=== PATIENT | female | born 1935 | race Caucasian/White ===

== ENCOUNTER 2018-04-13 19:07 | Emergency (ER) | payer MEDICARE, OTHER ==
[2018-04-13] MEDS ORDERED: Lidocaine 1% w/Epinephrine 1:100K 20 ML VIAL ONE (19:36)
[2018-04-13 20:21] LABS: #Basophils 0.1 thou/uL (0.0-0.2); #Eosinphils 0.3 thou/uL (0.0-0.7); #Lymphocytes 4.6 thou/uL (1.20-3.40); #Monocytes 1.2 thou/uL (0.11-0.59); #Neutrophils 6.7 thou/uL (1.40-6.50); %Basophils 0.7 % (0.0-1.0); %Eosinophils 2.6 % (0.0-10.0); %Lymphocytes 35.9 % (21.0-51.0); %Monocytes 9.1 % (0.0-10.0); %Neutrophils 51.8 % (42.0-75.0); Hemoglobin 12.6 g/dL (12.0-16.0); Mean Corpuscular HGB CONC 31.9 g/dL (32.0-36.0); Mean Corpuscular Hemoglobin 29.7 pg (27.0-31.0); Mean Platelet Volume 7.3 fL (7.4-10.4); Platelet Count 318 thou/uL (130-400); RBC Distribution Width 13.5 % (11.5-14.5); Red Blood Cell (RBC) Count 4.24 mill/uL (4.20-5.40); White Blood Cell (WBC) Count 12.9 thou/uL (4.8-10.8)
[2018-04-13] MEDS ORDERED: Acetaminophen 500 MG TAB ONE (20:49)
--- NOTE | 2018-04-13 21:39 | CT ---
CT BRAIN NONCONTRAST: 04/13/18 HISTORY: 82-year-old female status post acute head trauma from fall. FINDINGS: There is no midline shift or any other mass effect. There is no evidence of acute intracranial hemor rhage, large cortical infarct, obstructive hydrocephalus, or extraaxial fluid collection. The calvar ium is intact. There is diffuse parenchymal volume loss. There are low attenuation areas in the whi te matter. These are nonspecific, but in a patient of this age, they are probably chronic ischemic w eun matter changes due to microvascular atherosclerosis. There is a left posterior parietal scalp he matoma containing gas. There are skin enrike superficial to this hematoma. IMPRESSION: 1) No acute intracranial findings. 2) Involutional changes and chronic ischemic white matter changes. 3) Acute, traumatic, left parietal scalp hematoma and laceration. jn [] POS: [facility]
[2018-04-13 22:53] LABS: Bilirubin Negative (Negative); Blood, Urine Negative (Negative); Clarity CLEAR (Clear); Glucose, Urine (Dipstick) Negative (Negative); Leukocyte Moderate (Negative); Nitrite Negative (Negative); Protein, Urine (Dipstick) Negative (Neg-Trace); Specific Gravity, Urine 1.016 (1.002-1.036); Urobilinogen 0.2 mg/dL (0.2-1.0)
[2018-04-13 22:55] LABS: Bacteria/HPF None Seen HPF (None Seen); Hyaline Casts/LPF 0-3 HYALINE CAST LPF (0-3 Hyaline); Pathc Cast-AUWi Flag 0.29 (0-2.49); RBC/HPF 0-3 HPF (0-3); Squamous Epithelial 0-3 HPF (0-3)
== END 2018-04-13 23:20 | disposition home or self-care (01) ==
LOC: ERS 19:07
DX: S01.01XA Laceration without foreign body of scalp, initial encounter (principal); E11.9 Type 2 diabetes mellitus without complications; J44.9 Chronic obstructive pulmonary disease, unspecified; F32.9 Major depressive disorder, single episode, unspecified; Z79.899 Other long term (current) drug therapy; Z79.4 Long term (current) use of insulin; W19.XXXA Unspecified fall, initial encounter; Y92.000 Kitchen of unspecified non-institutional (private) residence as the place of occurrence of the external cause
CPT/HCPCS: 12001; 36415; 70450; 81003; 81015; 85025; 93005; J2001

== ENCOUNTER 2021-03-11 04:09 | Inpatient (IN) | payer OTHER, MEDICARE ==
[2021-03-11] MEDS ORDERED: Lidocaine 1% w/Epinephrine 1:100K 20 ML VIAL ONE (04:38)
[2021-03-11 07:26] LABS: Hemoglobin 9.8 g/dL (12.0-16.0); Mean Corpuscular HGB CONC 31.9 g/dL (32.0-36.0); Mean Corpuscular Hemoglobin 28.7 pg (27.0-31.0); Mean Corpuscular Volume 89.8 fL (78.0-98.0); Mean Platelet Volume 7.3 fL (7.4-10.4); Platelet Count 421 thou/uL (130-400); RBC Distribution Width 13.3 % (11.5-14.5); White Blood Cell (WBC) Count 23.6 thou/uL (4.8-10.8)
[2021-03-11 07:45] LABS: ALT (SGPT) 10 U/L (8-55); AST (SGOT) 10 U/L (5-34); Albumin 3.3 g/dL (3.4-4.8); Alkaline Phosphatase 74 U/L (40-110); Anion Gap 13 mmol/L (10-20); BUN (Urea Nitrogen) 21 mg/dL (9.8-20.1); Bilirubin, Total 0.3 mg/dL (0.2-1.2); Calc. Creatinine Clearance 0 mL/min (70-130); Calcium 9.1 mg/dL (7.8-10.44); Carbon Dioxide 25 mmol/L (23-31); Chloride 102 mmol/L (98-107); Globulin 2.8 g/dL (2.4-3.5); Glucose 314 mg/dL (83-110); Protein, Total 6.1 g/dL (5.8-8.1); Sodium 136 mmol/L (136-145)
[2021-03-11 07:48] LABS: Band 3 % (5-11); Eosinophils 1 % (0-10); Hypochromia SLIGHT = 6-15 cells (100X) (0-5/hpf); Lymphocytes 27 % (21-51); MDiff Complete? YES; Monocytes 9 % (0-10); Neutrophil 60 % (42-75); Platelet Morphology Comment Appears Increased; Polychromasia SLIGHT = 2-3 cells (100X) (0-2/hpf)
[2021-03-11] MEDS ORDERED: Sodium Chloride 0.9% 100 ML ONE (08:10)
[2021-03-11] MEDS ORDERED: cefTRIAXone\\ROCEPHIN 2 GM VIAL ONE (08:10)
[2021-03-11 08:54] LABS: Bacteria/HPF 2+ HPF (None Seen); Bilirubin Negative (Negative); Blood, Urine Negative (Negative); Clarity Clear (Clear); Glucose, Urine (Dipstick) Normal (Negative); Ketone, Urine Trace mg/dL (Negative); Leukocyte 75 Leu/uL (Negative); Nitrite 1+ (Negative); Protein, Urine (Dipstick) 30 mg/dL (Neg-Trace); RBC/HPF 0-3 HPF (0-3); Specific Gravity, Urine 1.025 (1.002-1.036); Squamous Epithelial 0-3 HPF (0-3); Urobilinogen Normal mg/dL (Less than 2)
[2021-03-11] MEDS ORDERED: Dextrose 50% Abboject 50 ML SYRINGE SLOW IVP PRN (12:32)
[2021-03-11] MEDS ORDERED: Acetaminophen 325 MG TAB PO PRN (12:32)
[2021-03-11] MEDS ORDERED: Dextrose 5% in Water 1,000 ML IV PRN (12:32)
[2021-03-11] MEDS ORDERED: Bisacodyl 5 MG TAB PO PRN (12:32)
[2021-03-11] MEDS ORDERED: Ondansetron PF 4 MG/2 ML Vial IVP PRN (12:32)
[2021-03-11 13:53] LABS: SARS-CoV-2 NAA Rapid Test Not Detected (NotDetected)
[2021-03-11 19:00] VITALS: BMI 34.2
[2021-03-12 05:01] LABS: Anion Gap 12 mmol/L (10-20); BUN (Urea Nitrogen) 16 mg/dL (9.8-20.1); Calc. Creatinine Clearance 58 mL/min (70-130); Calcium 8.5 mg/dL (7.8-10.44); Carbon Dioxide 23 mmol/L (23-31); Chloride 106 mmol/L (98-107); Glucose 201 mg/dL (83-110); Potassium 4.2 mmol/L (3.5-5.1); Sodium 137 mmol/L (136-145)
[2021-03-12] MEDS: HumaLOG 300 UNITS/3 ML VIAL SC PRN ×3 (06:01→17:58)
[2021-03-12] MEDS ORDERED: Enoxaparin Sodium 40 MG/0.4 ML SYRINGE SC SCH (09:00)
[2021-03-12] MEDS: cefTRIAXone\\ROCEPHIN 1 GM in Sodium Chloride 0.9% 100 ML IVPB SCH (09:26)
[2021-03-12] MEDS ORDERED: Albuterol Sulfate 2.5 mg/3 ml Neb NEB PRN (10:39)
[2021-03-12] MEDS ORDERED: Non-Formulary Item 1 EACH (Fluticasone/Vilanterol [Breo Ellipta] 100 MCG/25 MCG Blst.W.De IH PRN (10:39)
[2021-03-12 13:58] LABS: #Basophils 0.1 thou/uL (0.0-0.2); #Eosinphils 0.2 thou/uL (0.0-0.7); #Lymphocytes 4.7 thou/uL (1.20-3.40); #Monocytes 1.2 thou/uL (0.11-0.59); #Neutrophils 8.7 thou/uL (1.40-6.50); %Basophils 0.6 % (0.0-1.0); %Eosinophils 1.1 % (0.0-10.0); %Lymphocytes 31.7 % (21.0-51.0); %Monocytes 8.1 % (0.0-10.0); %Neutrophils 58.6 % (42.0-75.0); Hemoglobin 7.8 g/dL (12.0-16.0); Mean Corpuscular HGB CONC 33.3 g/dL (32.0-36.0); Mean Corpuscular Volume 90.2 fL (78.0-98.0); Mean Platelet Volume 7.5 fL (7.4-10.4); Platelet Count 310 thou/uL (130-400); RBC Distribution Width 13.5 % (11.5-14.5); White Blood Cell (WBC) Count 14.9 thou/uL (4.8-10.8)
[2021-03-12] MEDS: metFORMIN 500 MG TAB PO SCH (17:36)
[2021-03-12] MEDS ORDERED: GLUCOSAMINE SULFATE 1000 MG PO SCH (21:00)
[2021-03-12] MEDS ORDERED: HumuLIN 70/30 (300 UNITS/3 ML VIAL) SC SCH (22:30)
[2021-03-12] MEDS: Magnesium Oxide 400 MG TAB PO SCH (23:21)
[2021-03-12] MEDS: Atorvastatin Calcium 20 MG TAB PO SCH (23:22)
[2021-03-12] MEDS: Docusate 100 MG CAP PO SCH (23:22)
[2021-03-12] MEDS: Melatonin 3 MG TAB PO SCH (23:22)
[2021-03-13] MEDS ORDERED: Polyvinyl Alcohol 1.4%/Povidone 0.6% Opth Drops EA EYE PRN (04:05)
[2021-03-13 04:36] LABS: Hemoglobin 7.3 g/dL (12.0-16.0); Mean Corpuscular Hemoglobin 30.5 pg (27.0-31.0); Mean Corpuscular Volume 89.8 fL (78.0-98.0); Mean Platelet Volume 7.2 fL (7.4-10.4); Platelet Count 260 thou/uL (130-400); RBC Distribution Width 13.6 % (11.5-14.5); White Blood Cell (WBC) Count 15.7 thou/uL (4.8-10.8)
[2021-03-13 04:47] LABS: Anion Gap 10 mmol/L (10-20); BUN (Urea Nitrogen) 15 mg/dL (9.8-20.1); Calc. Creatinine Clearance 52 mL/min (70-130); Calcium 9.4 mg/dL (7.8-10.44); Carbon Dioxide 30 mmol/L (23-31); Chloride 101 mmol/L (98-107); Glucose 182 mg/dL (83-110); Potassium 4.1 mmol/L (3.5-5.1); Sodium 137 mmol/L (136-145)
[2021-03-13 06:09] LABS: Band 4 % (5-11); Eosinophils 2 % (0-10); Lymphocytes 41 % (21-51); MDiff Complete? YES; Metamyelocyte 1 % (0-0); Monocytes 3 % (0-10); Myelocyte 1 % (0-0); Neutrophil 48 % (42-75)
[2021-03-13] MEDS ORDERED: GUAIFENESIN SF SOLN 200 MG/10 ML UDCUP PO PRN (08:35)
[2021-03-13] MEDS ORDERED: Sodium Chloride 0.65% Nasal 44 ML BOT EA NARE PRN (08:35)
[2021-03-13] MEDS ORDERED: Cepastat Lozenges 1 LOZ PO PRN (08:35)
[2021-03-13] MEDS ORDERED: hydrALAZINE 20 MG/ML VIAL SLOW IVP PRN (08:35)
[2021-03-13] MEDS ORDERED: Loperamide HCl 2 MG CAP PO PRN (08:35)
[2021-03-13] MEDS ORDERED: Artificial Tear Sol 15 ML BOT EA EYE PRN (08:35)
[2021-03-13] MEDS ORDERED: Hydrocerin (Eucerin) Cream 120 gm Jar TOP PRN (08:35)
[2021-03-13] MEDS ORDERED: Senokot S 8.6-50 MG TAB PO PRN (08:35)
[2021-03-13] MEDS ORDERED: Calcium Carbonate 500 MG ChewTAB PO PRN (08:35)
[2021-03-13] MEDS ORDERED: Benzonatate 100 MG CAP PO PRN (08:35)
[2021-03-13] MEDS ORDERED: Mometasone 100 MCG/Formoterol 5 MCG 120 PUFF INHALER INH PRN (08:44)
[2021-03-13] MEDS ORDERED: Albuterol 200 PUFF (6.7GM INHALER) INH PRN (08:51)
[2021-03-13] MEDS ORDERED: HumuLIN 70/30 (300 UNITS/3 ML VIAL) SC SCH ×2 (09:00)
[2021-03-13] MEDS ORDERED: Aspirin 81 mg Enteric Coated Tablet PO SCH (09:00)
[2021-03-13] MEDS: cefTRIAXone\\ROCEPHIN 1 GM in Sodium Chloride 0.9% 100 ML IVPB SCH (09:04)
[2021-03-13] MEDS: metFORMIN 500 MG TAB PO SCH ×2 (09:05→16:26)
[2021-03-13] MEDS: Calcium Carbonate 600 MG + Vit D TAB PO SCH (09:05)
[2021-03-13] MEDS: Icosapent Ethyl 1 GM CAPSULE PO SCH ×2 (09:05→21:15)
[2021-03-13] MEDS: Magnesium Oxide 400 MG TAB PO SCH ×2 (09:06→21:15)
[2021-03-13] MEDS: Citalopram 20 MG TAB PO SCH (09:06)
[2021-03-13] MEDS: Docusate 100 MG CAP PO SCH ×2 (09:06→21:15)
[2021-03-13] MEDS: Thyroid 60 MG TAB PO SCH (09:07)
[2021-03-13] MEDS: Cyanocobalamin (Vitamin B-12) 1,000 MCG TAB PO SCH (09:13)
[2021-03-13] MEDS: Folic Acid 1 MG TAB PO SCH (09:13)
[2021-03-13] MEDS: HumuLIN 70/30 (300 UNITS/3 ML VIAL) SC SCH ×2 (10:24→21:15)
[2021-03-13] MEDS: Torsemide 10 MG TAB PO SCH ×3 (10:25→21:17)
[2021-03-13] MEDS: Albuterol 200 PUFF (6.7GM INHALER) INH SCH ×2 (14:51→20:31)
[2021-03-13] MEDS: HumaLOG 300 UNITS/3 ML VIAL SC PRN (16:25)
[2021-03-13] MEDS: Atorvastatin Calcium 20 MG TAB PO SCH (21:15)
[2021-03-13] MEDS: Melatonin 3 MG TAB PO SCH (21:15)
[2021-03-14] MEDS: Albuterol 200 PUFF (6.7GM INHALER) INH SCH ×3 (05:01→13:21)
[2021-03-14 05:28] VITALS: TEMP 98.1
[2021-03-14] MEDS ORDERED: Ferrous Sulfate 325 MG TAB PO SCH (08:00)
[2021-03-14 08:12] LABS: Hemoglobin 8.2 g/dL (12.0-16.0); Mean Corpuscular HGB CONC 32.7 g/dL (32.0-36.0); Mean Corpuscular Hemoglobin 29.5 pg (27.0-31.0); Mean Corpuscular Volume 90.1 fL (78.0-98.0); Mean Platelet Volume 7.2 fL (7.4-10.4); Platelet Count 378 thou/uL (130-400); RBC Distribution Width 13.6 % (11.5-14.5); Red Blood Cell (RBC) Count 2.77 mill/uL (4.20-5.40); White Blood Cell (WBC) Count 19.1 thou/uL (4.8-10.8)
[2021-03-14 08:28] LABS: Anion Gap 16 mmol/L (10-20); BUN (Urea Nitrogen) 12 mg/dL (9.8-20.1); Calc. Creatinine Clearance 51 mL/min (70-130); Calcium 9.4 mg/dL (7.8-10.44); Carbon Dioxide 28 mmol/L (23-31); Chloride 99 mmol/L (98-107); Glucose 188 mg/dL (83-110); Potassium 3.9 mmol/L (3.5-5.1); Sodium 139 mmol/L (136-145)
[2021-03-14 09:12] VITALS: BP 166/70
[2021-03-14 09:22] LABS: Band 1 % (5-11); Eosinophils 2 % (0-10); Lymphocytes 33 % (21-51); MDiff Complete? YES; Metamyelocyte 2 % (0-0); Monocytes 10 % (0-10); Neutrophil 52 % (42-75); Platelet Morphology Comment Appears Adequate; RBC Morphology Normal
[2021-03-14] MEDS: cefTRIAXone\\ROCEPHIN 1 GM in Sodium Chloride 0.9% 100 ML IVPB SCH (09:29)
[2021-03-14] MEDS: metFORMIN 500 MG TAB PO SCH (09:33)
[2021-03-14] MEDS: Thyroid 60 MG TAB PO SCH (09:34)
[2021-03-14] MEDS: Calcium Carbonate 600 MG + Vit D TAB PO SCH (09:34)
[2021-03-14] MEDS: Citalopram 20 MG TAB PO SCH (09:35)
[2021-03-14] MEDS: Cyanocobalamin (Vitamin B-12) 1,000 MCG TAB PO SCH (09:35)
[2021-03-14] MEDS: Docusate 100 MG CAP PO SCH (09:35)
[2021-03-14] MEDS: Icosapent Ethyl 1 GM CAPSULE PO SCH (09:36)
[2021-03-14] MEDS: Folic Acid 1 MG TAB PO SCH (09:36)
[2021-03-14] MEDS: Magnesium Oxide 400 MG TAB PO SCH (09:40)
[2021-03-14] MEDS: Torsemide 10 MG TAB PO SCH ×2 (09:40→10:00)
[2021-03-14] MEDS: HumuLIN 70/30 (300 UNITS/3 ML VIAL) SC SCH (09:43)
== END 2021-03-14 14:49 | disposition home or self-care (01) | DRG 854 ==
LOC: ERS 04:09 → ERHOLD 10:31 → 2NO 18:22
PROVIDERS: ADMIT Internal Medicine; ATTEND Internal Medicine
PROC: 0WQ80ZZ Repair Chest Wall, Open Approach (ICD-10-PCS; principal; 2021-03-11)
PROC: 0HQCXZZ Repair Left Upper Arm Skin, External Approach (ICD-10-PCS; 2021-03-11)
DX: A41.51 Sepsis due to Escherichia coli [E. coli] (principal); N30.00 Acute cystitis without hematuria; I69.354 Hemiplegia and hemiparesis following cerebral infarction affecting left non-dominant side; I50.32 Chronic diastolic (congestive) heart failure; D62 Acute posthemorrhagic anemia; S21.119A Laceration without foreign body of unspecified front wall of thorax without penetration into thoracic cavity, initial encounter; I48.0 Paroxysmal atrial fibrillation; E78.5 Hyperlipidemia, unspecified; E03.9 Hypothyroidism, unspecified; F32.9 Major depressive disorder, single episode, unspecified; S51.812A Laceration without foreign body of left forearm, initial encounter; E11.65 Type 2 diabetes mellitus with hyperglycemia; H54.40 Blindness, one eye, unspecified eye; Z20.822 Contact with and (suspected) exposure to COVID-19; W01.110A Fall on same level from slipping, tripping and stumbling with subsequent striking against sharp glass, initial encounter; Z95.0 Presence of cardiac pacemaker; Z90.710 Acquired absence of both cervix and uterus; Z98.890 Other specified postprocedural states; Z88.8 Allergy status to other drugs, medicaments and biological substances
CPT/HCPCS: 12007; 36415; 36416; 51701; 80048; 80053; 81003; 81015; 82274; 83605; 83880; 84484; 85025; 87077; 87086; 87186; 93005; 96365; J0696; J1650; J1815; J3490; U0002